=== PATIENT | female | born 2000 | race Two or more races ===

== ENCOUNTER 2020-02-01 17:32 | Emergency (ER) | payer OTHER ==
[~2020-02-01] VITALS: Ht 162.6 cm; Wt 57.6 kg
--- NOTE | 2020-02-01 17:51 | NUR ---
patient came in to the er, "surgeon handed her the used needle dior with needle and grabbed the tip by accident and got stuck on the left thumb". On room air, breathing evenly and unlabored. kept comfortable, will continue to monitor accordingly.
[2020-02-01 19:12] VITALS: BP 110/68
--- NOTE | 2020-02-01 19:12 | NUR ---
Patient discharged to home in stable condition. Written and verbal after care instructions given. Patient verbalizes understanding of instruction.
== END 2020-02-01 19:12 | disposition home or self-care (01) ==
LOC: ER 17:37
DX: S61.032A Puncture wound without foreign body of left thumb without damage to nail, initial encounter (principal); W46.0XXA Contact with hypodermic needle, initial encounter; Y93.89 Activity, other specified; Y92.89 Other specified places as the place of occurrence of the external cause; Y99.8 Other external cause status
CPT/HCPCS: 36415; 86706; 86803; 87340; 87806